=== PATIENT | male | born 1985 | race African-American/Black ===

== ENCOUNTER → 2017-02-06 | Outpatient (CLI) | payer MEDICARE, OTHER ==
--- NOTE | ~2017-02-06 | US5 ---
[facility] A Service [facility] RADIOLOGY TEXT RESULTS PATIENT: JIGAR GRANT LOCATION: [facility] [[email or web address] : [birth year] UNIT #: [id number] AGE: [address]: Maria E Szymanski MD SEX: M ORDER DR: [id number] [facility] [address] [place], [place] [address] [id number] O MR#: [id number] Acc #: [id number] NAME: JIGAR GRANT : 1985 SEX: M STUDY DATE/TIME: 02/06/2017 9:52 UNIT: [facility] [[email or web address] ROOM: STUDY DESCRIPTION: US Abdominal Complete Attending Physician: Maria E Szymanski M.D. Referring Physician: Maria E Szymanski M.D. Ordering Physician: Maria E Szymanski M.D. Primary Care Physician: Maria E Szymanski M.D. MEDICAL IMAGING REPORT This report is preliminary unless electronic signature is present EXAM Abdominal ultrasound. INDICATIONS Generalized abdominal pain for the past 2 weeks. PROCEDURE Morrow-scale and Doppler imaging of the abdomen. COMPARISON None. FINDINGS Pancreas mostly obscured by bowel gas and not well seen. Visualized portions of the abdominal aorta and inferior vena cava are unremarkable. Liver measures 17.3 cm. There is a 1.3 cm slightly hyperechoic lesion in the right hepatic lobe. The right kidney measures 11.5 cm. Unremarkable gallbladder. Common duct measures 3 mm. Left kidney measures 11.8 cm. Spleen measures 9.8 cm. It measures up to 10.4 cm on another image. IMPRESSION No clearly acute finding. There is a subtle 1.3 cm hyperechoic lesion in the right lobe of the liver. It may represent a hemangioma but it is indeterminate. Recommend evaluation with either abdominal MRI with liver protocol CT. Dictated by... Jhony Hillman M.D. THIS IS AN ELECTRONICALLY VERIFIED REPORT Jhony Hillman M.D. at 02/10/2017 7:21 AM [facility] A Service [facility] RADIOLOGY TEXT RESULTS PATIENT: JIGAR GRANT LOCATION: [facility] #: [id number] : [birth year] UNIT #: [id number] AGE: [address]: Maria E Szymanski MD SEX: M ORDER DR: MARIUM/jacinta TD: 02/06/2017 16:05 JOB #: [id number] MEDICAL IMAGING REPORT Page 1 of 1 COPY
== END | disposition home or self-care (01) ==
LOC: CGUS 08:53
DX: R10.11 Right upper quadrant pain (principal); R10.811 Right upper quadrant abdominal tenderness; K76.9 Liver disease, unspecified; Z87.19 Personal history of other diseases of the digestive system
CPT/HCPCS: 76700